=== PATIENT | male | born 1935 | race Caucasian/White ===

== ENCOUNTER 2023-05-20 13:12 | Inpatient (IN) | payer MEDICARE ==
[~2023-05-20] VITALS: Ht 172.7 cm; Wt 77.9 kg
--- NOTE | 2023-05-20 13:25 | ED Lower Extremity ---
General Chief Complaint: Trauma-Non Activation Stated Complaint: FALL | LT HIP PAIN Source: patient Exam Limitations: no limitations History of Present Illness Date Seen by Provider: May 20, 2023 Time Seen by Provider: 13:23 Initial Comments Patient is a 88-year-old male who presents ED with left elbow and left hip pain. Patient fell 1 hour ago. 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 Patient states when he stood up lost his balance fell directly on his left hip. Denies hitting his head or loss of conscious. Does have abrasion to the left elbow without any specific pain. Was not able to stand or bear weight. EMS was contacted. Slight rotation of the left hip. Pain with movement. Patient was given 100 mcg of fentanyl and route. Rates pain 5 out of 10. Denies of any chest pain, shortness of breath, neck pain, back pain vomiting, diarrhea, dizziness, lightheadedness. No history of previous hip fracture. Patient is not on anticoagulants. Allergies and Home Medications Allergies Coded Allergies: Acetaminophen (Unverified Allergy, Mild, 02/08/08) Patient Home Medication List Home Medication List Reviewed: Yes Review of Systems Constitutional: No chills, No diaphoresis EENTM: No ear pain, No blurred vision, No double vision, No mouth pain, No mouth swelling, No throat pain, No throat swelling Respiratory: No cough, No dyspnea on exertion Cardiovascular: No chest pain Gastrointestinal: No abdominal pain, No diarrhea, No vomiting Genitourinary: No decreased output, No discharge Musculoskeletal: No back pain; joint pain, joint swelling, muscle pain, muscle stiffness Skin: change in color All Other Systems Reviewed Negative Unless Noted: Yes Past Eacsgli-Leyhjf-Pvpbfd Hx Past Medical History Reproductive Disorders: No Physical Exam Vital Signs Vital Signs - First Documented 05/20/23 13:13 Temp 36.5 Pulse 68 Resp 18 B/P (MAP) 158/63 (94) Pulse Ox 95 O2 Delivery Room Air Capillary Refill : Height, Weight, BMI Height: '" Weight: lbs. oz. kg; BMI Method: General Appearance: WD/WN, no apparent distress HEENT: PERRL/EOMI, normal ENT inspection, TMs normal, pharynx normal Neck: non-tender, full range of motion, supple Cardiovascular: regular rate, rhythm, no edema, no gallop, no JVD Respiratory: chest non-tender, lungs clear, normal breath sounds, no respiratory distress, no accessory muscle use Gastrointestinal: normal bowel sounds, non tender, no organomegaly Back: normal inspection, no CVA tenderness Hips: left hip limited range of motion, left hip pain, left hip soft tissue tenderness Knees: bilateral knee non-tender, bilateral knee normal inspection, bilateral knee normal range of motion Ankles: bilateral ankle non-tender, bilateral ankle normal inspection, bilateral ankle normal range of motion, bilateral ankle no evidence of injury Feet: bilateral foot non-tender, bilateral foot normal inspection, bilateral foot normal range of motion, bilateral foot no evidence of injury 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 Normal active range of motion left elbow. Neurovascular intact.) Progress/Results/Core Measures Results/Orders Lab Results Laboratory Tests Test 05/20/23 13:20 05/20/23 14:19 Range/Units White Blood Count 10.3 4.3-11.0 10^3/uL Red Blood Count 4.42 4.30-5.52 10^6/uL Hemoglobin 14.4 13.3-17.7 g/dL Hematocrit 43 40-54 % Mean Corpuscular Volume 97 80-99 fL Mean Corpuscular Hemoglobin 33 25-34 pg Mean Corpuscular Hemoglobin Concent 34 32-36 g/dL Red Cell Distribution Width 13.1 10.0-14.5 % Platelet Count 165 130-400 10^3/uL Mean Platelet Volume 9.4 9.0-12.2 fL Immature Granulocyte % (Auto) 0 % Neutrophils (%) (Auto) 81 H 42-75 % Lymphocytes (%) (Auto) 10 L 12-44 % Monocytes (%) (Auto) 6 0-12 % Eosinophils (%) (Auto) 3 0-10 % Basophils (%) (Auto) 0 0-10 % Neutrophils # (Auto) 8.3 H 1.8-7.8 10^3/uL Lymphocytes # (Auto) 1.0 1.0-4.0 10^3/uL Monocytes # (Auto) 0.7 0.0-1.0 10^3/uL Eosinophils # (Auto) 0.3 0.0-0.3 10^3/uL Basophils # (Auto) 0.0 0.0-0.1 10^3/uL Immature Granulocyte # (Auto) 0.0 0.0-0.1 10^3/uL Percent Immature Platelet Fraction 2.4 0.0-7.6 % Sodium Level 138 135-145 MMOL/L Potassium Level 4.1 3.6-5.0 MMOL/L Chloride Level 108 H 98-107 MMOL/L Carbon Dioxide Level 24 21-32 MMOL/L Anion Gap 6 5-14 MMOL/L Blood Urea Nitrogen 11 7-18 MG/DL Creatinine 1.23 0.60-1.30 MG/DL Estimat Glomerular Filtration Rate 57 BUN/Creatinine Ratio 9 Glucose Level 106 H 70-105 MG/DL Calcium Level 9.2 8.5-10.1 MG/DL Corrected Calcium 9.4 8.5-10.1 MG/DL Total Bilirubin 0.8 0.1-1.0 MG/DL Aspartate Amino Transf (AST/SGOT) 27 5-34 U/L Alanine Aminotransferase (ALT/SGPT) 23 0-55 U/L Alkaline Phosphatase 77 40-136 U/L Total Protein 6.9 6.4-8.2 GM/DL Albumin 3.8 3.2-4.5 GM/DL Prothrombin Time 15.0 H 12.2-14.7 SEC INR Comment 1.1 0.8-1.4 Activated Partial Thromboplast Time 28 24-35 SEC My Orders Orders - MARTIR BARRIOS PA Pelvis With Left Hip 2-3 Views (05/20/23 13:21) Elbow, Left, 3 Views (05/20/23 13:21) Chest 1 View, Ap/Pa Only (05/20/23 13:43) Cbc And Automated Diff (05/20/23 13:43) Comprehensive Metabolic Panel (05/20/23 13:43) Partial Thromboplastin Time (05/20/23 13:43) Protime With Inr (05/20/23 13:43) Ekg Tracing (05/20/23 13:43) Fentanyl Injection (Fentanyl Injection (05/20/23 14:33) Ed Admission (Communication) (05/20/23 14:33) Catheter(Urinary) Insert & Ass ,15 (05/20/23 14:39) Lidocaine 2% (Urojet) (Lidocaine 2% (Uro (05/20/23 14:45) Medications Given in ED Current Medications Medications Dose Ordered Sig/Phoebe Route Start Time Stop Time Status Last Admin Dose Admin Lidocaine HCl 10 ml ONCE ONCE TOP 05/20/23 14:45 05/20/23 14:46 DC 05/20/23 14:43 10 ML Vital Signs/I&O 05/20/23 13:13 Temp 36.5 Pulse 68 Resp 18 B/P (MAP) 158/63 (94) Pulse Ox 95 O2 Delivery Room Air Comment Atrial fibrillation, 59 bpm, QRS duration 119 MS, QTc 481 MS. Departure Communication (PCP) Patient is a 88-year-old male with a history of AAA repair, coronary artery disease, Afib who presents ED for evaluation after fall. Differential diagnoses left hip fracture, left elbow fracture, hip sprain/strain, skin abrasion. This was a mechanical fall lost his balance hitting his left hip and left elbow. Was not able to stand or bear weight. Does not believe he has hit his head. No headache dizziness loss of consciousness, visual changes, neck or back pain. Slight external rotation of the left hip. Neurovascular intact. Did receive 100 mcg of fentanyl per EMS. Pain 5 out of 10. Does have a superficial abrasion to the left elbow. Up-to-date on his tetanus within the past 5 years. X-ray left elbow and left hip was ordered. X-ray of the left hip shows Mildly displaced base neck fracture to the left proximal femur without dislocation or acetabular injury apparent. Elbow x-ray was negative for acute fracture. Preop workup was initiated. Generalized lab work, EKG chest x-ray. Patient was discussed with Dr. Rodriguez orthopedic. At this time recommend admission to the hospitalist and tentatively will put patient on schedule for surgery tomorrow. Patient was discussed with Dr. Arzate hospitalist for [facility] who agreed to except patient. EKG shows atrial fibrillation with 59 bpm. Patient is currently on Multaq. History of atrial fibrillation. Did receive another dose of 50 mcg of fentanyl. Lab work grossly unremarkable. Chest x-ray unremarkable. Impression Primary Impression: Hip fracture Disposition: ADMITTED INPATIENT Condition: Stable Departure-Patient Inst. Referrals: NO,LOCAL PHYSICIAN (PCP/Family) Primary Care Physician MARTIR BARRIOS May 20, 2023 13:25
[2023-05-20 13:54] LABS: ALBUMIN 3.8 GM/DL (3.2-4.5); HEMOGLOBIN 14.4 g/dL (13.3-17.7); MEAN CORPUSCULAR HEMOGLOBIN 33 pg (25-34); POTASSIUM 4.1 MMOL/L (3.6-5.0)
[2023-05-20 13:55] LABS: CALCIUM 9.2 MG/DL (8.5-10.1)
[2023-05-20 13:56] LABS: BASOPHILS % (AUTO) 0 % (0-10); EOSINOPHILS # (AUTO) 0.3 10^3/uL (0.0-0.3); EOSINOPHILS % (AUTO) 3 % (0-10); HEMATOCRIT 43 % (40-54); LYMPHOCYTES % (AUTO) 10 % (12-44); MEAN CORPUSCULAR HGB CONC 34 g/dL (32-36); MEAN CORPUSCULAR VOLUME 97 fL (80-99); MEAN PLATELET VOLUME 9.4 fL (9.0-12.2); MONOCYTES # (AUTO) 0.7 10^3/uL (0.0-1.0); MONOCYTES % (AUTO) 6 % (0-12); NEUTROPHILS # (AUTO) 8.3 10^3/uL (1.8-7.8); NEUTROPHILS % (AUTO) 81 % (42-75); PLATELET COUNT 165 10^3/uL (130-400); TOTAL PROTEIN 6.9 GM/DL (6.4-8.2); WHITE BLOOD COUNT 10.3 10^3/uL (4.3-11.0)
[2023-05-20 13:58] LABS: BILIRUBIN,TOTAL 0.8 MG/DL (0.1-1.0)
[2023-05-20 14:00] LABS: CREATININE SERUM 1.23 MG/DL (0.60-1.30)
--- NOTE | 2023-05-20 14:10 | Diagnostic Imaging Report ---
Indication: Pain. Findings: 2 view left elbow performed. No displaced fat pad fracture, dislocation or acute articular irregularity. Impression: No acute-appearing abnormality. Dictated by: Dictated on workstation # [id number]
--- NOTE | 2023-05-20 14:10 | Diagnostic Imaging Report ---
INDICATION: A fall with fracture. Preop evaluation. FINDINGS: The lungs are clear. Sternal wires midline. No acute abnormality. No failure pattern. IMPRESSION: Clear chest. Dictated by: Dictated on workstation # [id number]
--- NOTE | 2023-05-20 14:11 | Diagnostic Imaging Report ---
INDICATION: Fall, with pain. AP pelvis and two-view left hip performed. FINDINGS: Exam confirms mildly displaced base neck left femoral fracture without dislocation of the head, and acetabulum appeared intact. Post-interventional changes noted. IMPRESSION: Mildly displaced base neck fracture to the left proximal femur without dislocation or acetabular injury apparent. Dictated by: Dictated on workstation # [id number]
[2023-05-20] MEDS ORDERED: fentaNYL INJECTION 100 MCG/2 ML VIAL IVP STA (14:33)
[2023-05-20] MEDS ORDERED: LIDOCAINE UROJET 2% GEL 10 ML PKG TOP ONE (14:45)
[2023-05-20 14:47] LABS: INR 1.1 (0.8-1.4)
--- NOTE | 2023-05-20 15:23 | History & Physical ---
HPI History of Present Illness: 88 yo male came to ER after falling earlier this afternoon. 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 He denies dizziness or loss of consciousness. He has pain in left leg that is okay if he doesn't move it at all and with the pain medication. When EMS picked him up he could hardly move his leg at all. He scraped his left elbow as well. He does not believe he his his head. Denies numbness or tingling in leg. Source: patient Exam Limitations: no limitations Date seen by provider: May 20, 2023 Time Seen by Provider: 15:19 Attending Physician PCP Admitting Physician: Attending Physician: Consult Dr. Rodriguez Date of Admission Home Medications Home Medications Reviewed patient Home Medication Reconciliation performed by pharmacy medication reconciliations ruling technician and/or nursing. Patients Allergies have been reviewed. Allergies Coded Allergies: acetaminophen (Unverified Allergy, Mild, 02/08/08) IYT-Yppfeq-Hqyhcb Hx Patient Social History Smoking Status: Former Smoker (quit smoking in 2009, smoked at least 1 ppd for 50+ years) Alcohol Use?: No Past Medical History PMHx: CAD s/p bypass Atrial fibrillation Hyperlipidemia Hypertension Peripheral vascular disease PSurgHx: Triple bypass 2010 Aortic anuerysm repair 2007 Renal artery stenting on left Cataract surgery Right inguinal hernia repair x 2 Family Medical History Significant Family History: Cancer (father pancreatic), CVA (mother stroke), Diabetes (sister) Review of Systems ([facility]) Constitutional: No fever EENTM: No blurred vision, No double vision, No nose congestion, No throat pain Respiratory: No cough, No short of breath Cardiovascular: No chest pain, No palpitations Gastrointestinal: No abdominal pain; constipation (on and off), diarrhea (on and off); No nausea, No vomiting Genitourinary: No dysuria Musculoskeletal: see HPI Skin: No rash Psychiatric/Neurological: Denies Headache, Denies Tingling Reviewed Test Results Reviewed Test Results Lab Laboratory Tests Test 05/20/23 13:20 05/20/23 14:19 Range/Units White Blood Count 10.3 4.3-11.0 10^3/uL Red Blood Count 4.42 4.30-5.52 10^6/uL Hemoglobin 14.4 13.3-17.7 g/dL Hematocrit 43 40-54 % Mean Corpuscular Volume 97 80-99 fL Mean Corpuscular Hemoglobin 33 25-34 pg Mean Corpuscular Hemoglobin Concent 34 32-36 g/dL Red Cell Distribution Width 13.1 10.0-14.5 % Platelet Count 165 130-400 10^3/uL Mean Platelet Volume 9.4 9.0-12.2 fL Immature Granulocyte % (Auto) 0 % Neutrophils (%) (Auto) 81 H 42-75 % Lymphocytes (%) (Auto) 10 L 12-44 % Monocytes (%) (Auto) 6 0-12 % Eosinophils (%) (Auto) 3 0-10 % Basophils (%) (Auto) 0 0-10 % Neutrophils # (Auto) 8.3 H 1.8-7.8 10^3/uL Lymphocytes # (Auto) 1.0 1.0-4.0 10^3/uL Monocytes # (Auto) 0.7 0.0-1.0 10^3/uL Eosinophils # (Auto) 0.3 0.0-0.3 10^3/uL Basophils # (Auto) 0.0 0.0-0.1 10^3/uL Immature Granulocyte # (Auto) 0.0 0.0-0.1 10^3/uL Percent Immature Platelet Fraction 2.4 0.0-7.6 % Sodium Level 138 135-145 MMOL/L Potassium Level 4.1 3.6-5.0 MMOL/L Chloride Level 108 H 98-107 MMOL/L Carbon Dioxide Level 24 21-32 MMOL/L Anion Gap 6 5-14 MMOL/L Blood Urea Nitrogen 11 7-18 MG/DL Creatinine 1.23 0.60-1.30 MG/DL Estimat Glomerular Filtration Rate 57 BUN/Creatinine Ratio 9 Glucose Level 106 H 70-105 MG/DL Calcium Level 9.2 8.5-10.1 MG/DL Corrected Calcium 9.4 8.5-10.1 MG/DL Total Bilirubin 0.8 0.1-1.0 MG/DL Aspartate Amino Transf (AST/SGOT) 27 5-34 U/L Alanine Aminotransferase (ALT/SGPT) 23 0-55 U/L Alkaline Phosphatase 77 40-136 U/L Total Protein 6.9 6.4-8.2 GM/DL Albumin 3.8 3.2-4.5 GM/DL Prothrombin Time 15.0 H 12.2-14.7 SEC INR Comment 1.1 0.8-1.4 Activated Partial Thromboplast Time 28 24-35 SEC Radiology Left elbow xray unremarkable CXR unremarkable Pelvis xray: IMPRESSION: Mildly displaced base neck fracture to the left proximal femur without dislocation or acetabular injury apparent. Physical Exam-([facility]) Physical Exam Vital Signs VS - Last 72 Hours, by Label 05/20/23 05/20/23 13:13 15:44 Temp 36.5 Pulse 68 63 Resp 18 18 B/P (MAP) 158/63 (94) 131/61 Pulse Ox 95 95 O2 Delivery Room Air Room Air Capillary Refill : Less Than 3 Seconds General Appearance: WD/WN, no apparent distress Respiratory: lungs clear, normal breath sounds Cardiovascular: regular rate, rhythm, no murmur Peripheral Pulses: 2+ Dorsalis Pedis (R), 2+ Left Dors-Pedis (L) Gastrointestinal: normal bowel sounds, non tender, soft, other (small umbilical hernia noted) Extremities: no pedal edema, normal capillary refill, other Skin: warm/dry Assessment/Plan Assessment/Plan Admission Status: Inpatient Order (span 2 midnights) Reason for Inpatient Admission: Hip fracture with multiple comorbidities (1) Hip fracture, left Status: Acute Assessment & Plan: Orthopedic surgery consulted. Fentanyl prn pain. Qualifiers: Qualified Codes: S72.002A - Fracture of unspecified part of neck of left femur, initial encounter for closed fracture (2) Coronary artery disease Status: Chronic Assessment & Plan: EKG with atrial fib (known) otherwise unremarkable. Asymptomatic and medically managed appropriately with no issues reported since bypass more than 10 years ago, follows with Cardiology regularly. Qualifiers: Qualified Codes: I25.810 - Atherosclerosis of coronary artery bypass graft(s) without angina pectoris (3) Aortic aneurysm Status: Chronic Assessment & Plan: History of stenting in past, reports yearly imaging shows stability/near resolution (4) Peripheral vascular disease Status: Chronic Assessment & Plan: Maintained on aspirin (5) Hypertension Status: Chronic Assessment & Plan: Maintained on ramipril (6) Hyperlipidemia Status: Chronic Assessment & Plan: Maintained on simvastatin (7) Atrial fibrillation Status: Chronic Assessment & Plan: Maintained on Multaq, states he was on coumadin years ago and has been off full anticoagulation for some time after joint decision making with his primary. TASHA,ZEN N MD May 20, 2023 15:23
[2023-05-20 16:00] VITALS: BP 163/70
--- NOTE | 2023-05-20 16:08 | Diagnostic Imaging Report ---
PROCEDURE: CT pelvis without contrast. TECHNIQUE: Multiple contiguous axial images were obtained through the pelvis without the use of intravenous contrast. Sagittal and coronal reformations were performed. Auto Exposure Controls were utilized during the CT exam to meet ALARA standards for radiation dose reduction. INDICATION: Left hip fracture. COMPARISON: 05/20/2023 radiographs. FINDINGS: Bone density appears low. There is an oblique fracture of the basicervical left femoral neck, with superior mild anterior displacement, impaction, and mild external rotation. The femoral heads are well seated in the acetabula bilaterally. There is mild degenerative change in the hip joints. There is a small left hip joint effusion. There is transitional anatomy at the lumbosacral junction. There are severe degenerative changes in the lower lumbar spine with L4 pars defects and grade 1 spondylolisthesis at L3-L4 and L4-L5. There is an aortobiiliac stent in an aortic aneurysm. Coils from prior abdominal hernia repair are noted in the right anterior abdomen. There is a fat-containing right inguinal hernia. A Whitlock catheter is in the bladder. No free fluid is seen in the pelvis. IMPRESSION: 1. Mildly displaced and impacted fracture of the left femoral neck. 2. Transitional anatomy at the lumbosacral junction with advanced degenerative change in the lower lumbar spine. Dictated by: Dictated on workstation # [id number]
[2023-05-20] MEDS: fentaNYL INJECTION 100 MCG/2 ML VIAL IVP PRN ×2 (17:13→20:42)
[2023-05-20] MEDS ORDERED: DRON400T6 PO (17:15)
[2023-05-20] MEDS ORDERED: RAMI10CA69 PO (17:15)
[2023-05-20] MEDS ORDERED: ASPI-999 PO (17:15)
[2023-05-20] MEDS ORDERED: SIMV40TA25 PO (17:15)
[2023-05-20 20:00] VITALS: BP 139/61
[2023-05-20] MEDS: DRONEDARONE 400 MG TABLET PO SCH ×2 (20:16→20:41)
[2023-05-20] MEDS ORDERED: DICYCLOMINE 10 MG CAPSULE PO PRN (22:00)
[2023-05-20 23:17] VITALS: BP 124/60
[2023-05-21] VITALS (13 sets, daily range): BP systolic 105–165; BP diastolic 55–81
[2023-05-21] MEDS: fentaNYL INJECTION 100 MCG/2 ML VIAL IVP PRN ×2 (03:20→09:04)
[2023-05-21 06:13] LABS: HEMATOCRIT 39 % (40-54); HEMOGLOBIN 13.1 g/dL (13.3-17.7); MEAN CORPUSCULAR HEMOGLOBIN 32 pg (25-34); MEAN CORPUSCULAR HGB CONC 34 g/dL (32-36); MEAN CORPUSCULAR VOLUME 96 fL (80-99); MEAN PLATELET VOLUME 9.8 fL (9.0-12.2); PLATELET COUNT 140 10^3/uL (130-400); WHITE BLOOD COUNT 14.8 10^3/uL (4.3-11.0)
[2023-05-21 06:16] LABS: POTASSIUM 4.2 MMOL/L (3.6-5.0)
[2023-05-21 06:17] LABS: CALCIUM 8.8 MG/DL (8.5-10.1)
[2023-05-21 06:21] LABS: CREATININE SERUM 1.24 MG/DL (0.60-1.30)
--- NOTE | 2023-05-21 08:26 | Consultation - Ortho ---
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, landed on left side, unable to bear weight, seen in emergency room and diagnosed with a left femoral neck fracture, I was asked to manage the fracture Medical, Surgical History CAD, A fib, Hyperlipidemia, HTN, PVD Coronary bypass, AAA repair 2007, Renal artery stenting on left, cataract extraction, right inguinal hernia repair x 2 Social History nonsmoker Family History Noncontributory Review of Systems - Allergies: Coded Allergies: acetaminophen (Unverified Allergy, Mild, 02/08/08) Home Meds Reported Medications Aspirin (Aspirin) 81 Mg Tab.chew, 81 MG PO DAILY, TAB 05/20/23 Ramipril (Ramipril) 10 Mg Capsule, 10 MG PO DAILY 05/20/23 Dronedarone HCl (Multaq) 400 Mg Tablet, 400 MG PO BID 05/20/23 Simvastatin (Simvastatin) 40 Mg Tablet, 40 MG PO DAILY 05/20/23 Objective Exam Left Leg: Ecchymosis over lateral portion of hip, no abrasion, skin intact, held in slight external rotation, +DF of ankle, sensation intact to light touch, cap refill normal Vital Signs Vital Signs Date Time Temp Pulse Resp B/P (MAP) Pulse Ox O2 Delivery O2 Flow Rate FiO2 05/21/23 07:08 37.0 60 18 135/63 (87) 90 Room Air 05/21/23 03:16 37.5 60 15 126/60 (82) 93 Room Air 05/20/23 23:17 36.8 70 15 124/60 (81) 92 Room Air 05/20/23 20:20 Room Air 05/20/23 20:00 37.3 78 15 139/61 (87) 93 Room Air 05/20/23 18:35 Room Air 05/20/23 16:00 37.0 73 14 163/70 (101) 96 Room Air 05/20/23 15:44 63 18 131/61 95 Room Air 05/20/23 13:13 36.5 68 18 158/63 (94) 95 Room Air I & O 05/21/23 07:00 Intake Total 400 ml Output Total 500 ml Balance -100 ml Lab Results Laboratory Tests 05/20/23 13:20: White Blood Count 10.3, Red Blood Count 4.42, Hemoglobin 14.4, Hematocrit 43, Mean Corpuscular Volume 97, Mean Corpuscular Hemoglobin 33, Mean Corpuscular Hemoglobin Concent 34, Red Cell Distribution Width 13.1, Platelet Count 165, Mean Platelet Volume 9.4, Immature Granulocyte % (Auto) 0, Neutrophils (%) (Auto) 81H, Lymphocytes (%) (Auto) 10L, Monocytes (%) (Auto) 6, Eosinophils (%) (Auto) 3, Basophils (%) (Auto) 0, Neutrophils # (Auto) 8.3H, Lymphocytes # (Auto) 1.0, Monocytes # (Auto) 0.7, Eosinophils # (Auto) 0.3, Basophils # (Auto) 0.0, Immature Granulocyte # (Auto) 0.0, Percent Immature Platelet Fraction 2.4, Sodium Level 138, Potassium Level 4.1, Chloride Level 108H, Carbon Dioxide Level 24, Anion Gap 6, Blood Urea Nitrogen 11, Creatinine 1.23, Estimat Glomerular Lawrence tration Rate 57, BUN/Creatinine Ratio 9, Glucose Level 106H, Calcium Level 9.2, Corrected Calcium 9.4, Total Bilirubin 0.8, Aspartate Amino Transf (AST/SGOT) 27, Alanine Aminotransferase (ALT/SGPT) 23, Alkaline Phosphatase 77, Total Pr otein 6.9, Albumin 3.8 05/20/23 14:19: Prothrombin Time 15.0H, INR Comment 1.1, Activated Partial Thromboplast Time 28 05/21/23 05:39: White Blood Count 14.8H, Red Blood Count 4.06L, Hemoglobin 13.1L, Hematocrit 39L , Mean Corpuscular Volume 96, Mean Corpuscular Hemoglobin 32, Mean Corpuscular Hemoglobin Concent 34, Red Cell Distribution Width 13.0, Platelet Count 140, Mean Platelet Volume 9.8, Sodium Level 138, Potassium Level 4.2, Chloride Level 109H, Carbon Dioxide Level 22, Anion Gap 7, Blood Urea Nitrogen 14, Creatinine 1.24, Estimat Glomerular Filtration Rate 57, BUN/Creatinine Ratio 11, Glucose Level 123H, Calcium Level 8.8 Imaging Pelvis and 2 views of left hip as well as CT of pelvis dated 05/20/23 were reviewed and demonstrated a displaced midcervical femoral neck fracture of the left hip Assessment and Plan Assessment Displaced Left Femoral Neck Fracture Problem List Displaced Left Femoral Neck Fracture Plan Reviewed exam and imaging. Discussed findings. I have recommended proceeding with prosthetic replacement of the left femoral neck fracture. Nature of the procedure and the postoperative course were discussed. Risks and benefits were discussed. Consent to be obtained. Tentatively scheduled for early this afternoon. Will proceed as long as medically optimized. Final Diagonsis Displaced Left Femoral Neck Fracture Level of the visit: Level 3 NARESH SANCHEZ MD May 21, 2023 08:26
--- NOTE | 2023-05-21 08:37 | Progress Note ---
VERNON MARRUFO 05/21/23 0837: Subjective Subjective/Events-last exam Patient spoke with ortho thinks they are gonna need a partial hip replacement. Ortho wanted to get cardiology to stop by to clear him for surgery. prior to hip fracture patient was able to walk a few blocks without SOA and can climb a flight of stairs without chest pain. Patiet report pain that is worse today. She last received fentinyl at 7:00 but it seems to wear off quickly. patient cant move or change positions due to pain. pain is a 5/10. gets down to a 3 after pain then goes to 7 before pain meds. patient also reports having bladder spasms. been going on ever since the cath was placed. patient has no questions or concerns. Review of Systems General: No Chills; Night Sweats (room was warm ) HEENT: No Head Aches, No Visual Changes, No Eye Pain, No Ear Pain, No Dysphasia Pulmonary: No Dyspnea; Cough (still getting over a cold ) Cardiovascular: No: Chest Pain, Palpitations Gastrointestinal: Nausea, Vomiting (vomited 2x thinks it was due to bladder spasm medication ); No: Abdominal Pain, Diarrhea, Constipation Genitourinary: No Dysuria Musculoskeletal: leg pain (from hip to toes on left leg ) Neurological: Weakness (in left leg due to pain) Objective Exam Last Set of Vital Signs Vital Signs Date Time Temp Pulse Resp B/P (MAP) Pulse Ox O2 Delivery O2 Flow Rate FiO2 05/21/23 07:08 37.0 60 18 135/63 (87) 90 Room Air Capillary Refill : Less Than 3 Seconds I&O Intake and Output 05/20/23 23:59 Intake Total 400 ml Output Total 350 ml Balance 50 ml Intake Oral 400 ml Output Urine Total 350 ml Daily Weight Change No General: Alert, Oriented X3, Mild Distress HEENT: EOMI Lungs: Clear to Auscultation, Normal Air Movement Heart: Other (ireg ireg ) Abdomen: Normal Bowel Sounds, Soft, No Tenderness Extremities: No Edema, Normal Pulses Neuro: Sensation Intact Results/Procedures Lab Laboratory Tests 05/20/23 13:20: White Blood Count 10.3, Red Blood Count 4.42, Hemoglobin 14.4, Hematocrit 43, Mean Corpuscular Volume 97, Mean Corpuscular Hemoglobin 33, Mean Corpuscular Hemoglobin Concent 34, Red Cell Distribution Width 13.1, Platelet Count 165, Mean Platelet Volume 9.4, Immature Granulocyte % (Auto) 0, Neutrophils (%) (Auto) 81H, Lymphocytes (%) (Auto) 10L, Monocytes (%) (Auto) 6, Eosinophils (%) (Auto) 3, Basophils (%) (Auto) 0, Neutrophils # (Auto) 8.3H, Lymphocytes # (Auto) 1.0, Monocytes # (Auto) 0.7, Eosinophils # (Auto) 0.3, Basophils # (Auto) 0.0, Immature Granulocyte # (Auto) 0.0, Percent Immature Platelet Fraction 2.4, Sodium Level 138, Potassium Level 4.1, Chloride Level 108H, Carbon Dioxide Level 24, Anion Gap 6, Blood Urea Nitrogen 11, Creatinine 1.23, Estimat Glomerular Filtration Rate 57, BUN/Creatinine Ratio 9, Glucose Level 106H, Calcium Level 9.2, Corrected Calcium 9.4, Total Bilirubin 0.8, Aspartate Amino Transf (AST/SGOT) 27, Alanine Aminotransferase (ALT/SGPT) 23, Alkaline Phosphatase 77, Total Protein 6.9, Albumin 3.8 05/20/23 14:19: Prothrombin Time 15.0H, INR Comment 1.1, Activated Partial Thromboplast Time 28 05/21/23 05:39: White Blood Count 14.8H, Red Blood Count 4.06L, Hemoglobin 13.1L, Hematocrit 39L , Mean Corpuscular Volume 96, Mean Corpuscular Hemoglobin 32, Mean Corpuscular Hemoglobin Concent 34, Red Cell Distribution Width 13.0, Platelet Count 140, Mean Platelet Volume 9.8, Sodium Level 138, Potassium Level 4.2, Chloride Level 109H, Carbon Dioxide Level 22, Anion Gap 7, Blood Urea Nitrogen 14, Creatinine 1.24, Estimat Glomerular Filtration Rate 57, BUN/Creatinine Ratio 11, Glucose Level 123H, Calcium Level 8.8 Radiology Left elbow xray unremarkable CXR unremarkable Pelvis xray: IMPRESSION: Mildly displaced base neck fracture to the left proximal femur without dislocation or acetabular injury apparent. Assessment/Plan Assessment/Plan (1) Hip fracture, left Status: Acute Assessment & Plan: Fentanyl prn pain. surgery planned for today around noon. Qualifiers: Qualified Codes: S72.002A - Fracture of unspecified part of neck of left femur, initial encounter for closed fracture (2) Coronary artery disease Status: Chronic Assessment & Plan: EKG with atrial fib (known) otherwise unremarkable. Asymptomatic and medically managed appropriately with no issues reported since bypass more than 10 years ago, follows with Cardiology regularly. Qualifiers: Qualified Codes: I25.810 - Atherosclerosis of coronary artery bypass graft(s) without angina pectoris (3) Bladder spasms Status: Acute Assessment & Plan: Patient reported bladder spasms since placement of catheter. Start dicyclomine PRN (4) Aortic aneurysm Status: Chronic Assessment & Plan: History of stenting in past, reports yearly imaging shows stability/near resolution (5) Peripheral vascular disease Status: Chronic Assessment & Plan: Maintained on aspirin (6) Hypertension Status: Chronic Assessment & Plan: Maintained on ramipril (7) Hyperlipidemia Status: Chronic Assessment & Plan: Maintained on simvastatin (8) Atrial fibrillation Status: Chronic Assessment & Plan: Maintained on Multaq, states he was on coumadin years ago and has been off full anticoagulation for some time after joint decision making with his primary. ZEN CORDOVA MD 05/21/232037: Supervisory-Addendum Brief Verification & Attestation Participated in pt care: history, MDM, physical Personally performed: exam, history, MDM, supervision of care Care discussed with: Medical Student Procedures: n/a I personally performed or re-performed the history, physical exam and treatment for the E/M. I discussed the case with the Medical Student, and concur with the Medical Student documentation of history, physical exam and treatment plan unless otherwise noted. VERNON MARRUFO May 21, 2023 08:37 ZEN CORDOVA MD May 21, 2023 20:38
[2023-05-21] MEDS ORDERED: RAMIPRIL 2.5 MG CAPSULE PO SCH ×2 (09:00→16:00)
[2023-05-21] MEDS ORDERED: NON-FORMULARY MEDICATION 1 EA EA (Ramipril 10 MG) PO SCH (09:00)
[2023-05-21] MEDS ORDERED: NON-FORMULARY MEDICATION 1 EA EA (Simvastatin 40 MG) PO SCH (09:00)
[2023-05-21] MEDS: ASPIRIN 81 MG CHEWABLE TABLET PO SCH (09:03)
[2023-05-21] MEDS: DRONEDARONE 400 MG TABLET PO SCH ×2 (09:04→20:33)
[2023-05-21] MEDS ORDERED: SODI45SP9 NS (09:18)
--- NOTE | 2023-05-21 11:27 | Consultation-Cardiology ---
HPI-Cardiology Cardiology Consultation: Date of Consultation 05/21/23 Time Seen by a Provider: 11:00 Date of Admission 03-12-22 Attending Physician Earlene,Local Physician Admitting Physician Admitting Physician: Zen Cordova MD Attending Physician: Zen Cordova MD Consulting Physician Michelle Ortega MD HPI: Chief Complaint: Chronic a-fib Surgical clearance Mr. Edwards is an 88 yr old male who has been admitted to [facility] from the ED d/t left hip fracture d/t a mechanical fall. 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 He denies any dizziness, chest pain, SOB, palpitations, syncope or near syncope. No c/o LE swelling. He reports his primary transit mechanic was Dr. Owens with [facility], but d/t him leaving he is now establishing care with Dr. Carley oh. He reports he was seen by a nurse practitioner at the [facility] in [place] recently. He has been compliant with his medications. Review of Systems-Cardiology Review of Systems Constitutional: No chills, No fever, No malaise Eyes: No vision change Ears/Nose/Throat: No epistaxis, No recent hearing loss Respiratory: As described under HPI Cardiovascular: As described under HPI Gastrointestinal: No constipation, No diarrhea, No nausea, No vomiting Genitourinary: No dysuria, No hematuria Musculoskeletal: other (left hip fracture) Skin: other (abrasions to his left elbow/arm); No rash on exposed areas, No ulcerations on exposed areas Psychiatric/Neurological: No anxiety, No depression, No seizure, No focal weakness, No syncope All Other Systems Reviewed Negative Unless Noted: Yes XKM-Ndhddl-Lmcret Hx Patient Social History Smoking Status: Former Smoker Alcohol Use?: No Pt feels they are or have been: No Immunizations Up To Date Date of Influenza Vaccine: Mar 19, 2023 Past Medical History PMH As described under Assessment. Family Medical History Family Medical History: No reported family h/o CAD Allergies and Home Medications Allergies Coded Allergies: acetaminophen (Unverified Allergy, Mild, 02/08/08) Patient Home Medication List Aspirin (Aspirin) 81 Mg Tab.chew, 81 MG PO DAILY, (Reported) Entered as Reported by: ZEN CORDOVA on [id number] Last Action: Reviewed Dronedarone HCl (Multaq) 400 Mg Tablet, 400 MG PO BID, (Reported) Entered as Reported by: ZEN CORDOVA on 05/20/231714 Last Action: Reviewed Ramipril (Ramipril) 10 Mg Capsule, 10 MG PO 1600, (Reported) Entered as Reported by: ZEN CORDOVA on 05/20/231714 Last Action: Reviewed Simvastatin (Simvastatin) 40 Mg Tablet, 40 MG PO HS, (Reported) Entered as Reported by: ZEN CORDOVA on 05/20/231714 Last Action: Reviewed Sodium Chloride (Saline Nose [place]) 0.65 % [place], 1 SPRAY NS DAILY PRN for DRY NOSE, (Reported) Entered as Reported by: QI FLORES on 05/21/23917 Last Action: Reviewed Physical Exam-Cardiology Physical Exam Vital Signs/I&O 05/21/23 05/22/23 05/22/23 23:30 04:26 08:02 Temp 37.3 37.4 37.4 Pulse 72 102 71 Resp 18 18 17 B/P (MAP) 105/61 (76) 114/61 (78) 108/64 (79) Pulse Ox 95 91 98 O2 Delivery Room Air Room Air Room Air 05/21/23 23:59 Intake Total 2225 ml Output Total 480 ml Balance 1745 ml Capillary Refill : Less Than 3 Seconds Constitutional: AAO x 3, well-developed, well-nourished HEENT: PERRL, hearing is well preserved, oral hygience is good Neck: No carotid bruit; carotid pulses are 2 + bilaterally Respiratory: No accessory muscle use, No respiratory distress; chest expansion is symmetric, chest is bilaterally symmetric, lungs clear to auscultation Cardiovascular: irregularly irregular; No JVD; S1 and S2 Gastrointestinal: No tender; soft, round; No guarding; audible bowel sounds Extremities: no lower extremity edema bilateral Neurologic/Psychiatric: other (moves extremities, did not manipulate left leg d/t hip fracture, but able to move toes) Skin: No rash on exposed areas; other (multiple abrasions to left elbow/arm with dressing in place) Data Review Labs Laboratory Tests 05/22/23 05:30: White Blood Count 18.8H, Red Blood Count 3.15L, Hemoglobin 10.1#L, Hematocrit 30L, Mean Corpuscular Volume 96, Mean Corpuscular Hemoglobin 32, Mean Corpuscular Hemoglobin Concent 33, Red Cell Distribution Width 13.2, Platelet Count 138, Mean Platelet Volume 10.2, Immature Granulocyte % (Auto) 1, Neutrophils (%) (Auto) 92H, Lymphocytes (%) (Auto) 2L, Monocytes (%) (Auto) 5, Eosinophils (%) (Auto) 0, Basophils (%) (Auto) 0, Neutrophils # (Auto) 17.3H, Lymphocytes # (Auto) 0.5L, Monocytes # (Auto) 0.9, Eosinophils # (Auto) 0.0, Basophils # (Auto) 0.0, Immature Granulocyte # (Auto) 0.1, Neutrophils % (Manual) 93, Lymphocytes % (Manual) 2, Monocytes % (Manual) 5, Platelet Estimate ADEQUATE, Percent Immature Platelet Fraction 2.9, Blood Morphology Comment ELISABETH L, Sodium Level 137, Potassium Level 4.4, Chloride Level 108H, Carbon Dioxide Level 20L, Anion Gap 9, Blood Urea Nitrogen 23H, Creatinine 1.35H, Estimat Glomerular Filtration Rate 51, BUN/Creatinine Ratio 17, Glucose Level 136H, Calcium Level 8.0L Radiology NAME: NICHOLE EDWARDS [facility] REC#: [id number] PT STATUS: ADM Marita : 1935 PHYSICIAN: MARTIR BARRIOS ADMIT DATE: 05/20/23 Signed Date of Exam:05/20/23 CHEST 1 VIEW, AP/PA ONLY INDICATION: A fall with fracture. Preop evaluation. FINDINGS: The lungs are clear. Sternal wires midline. No acute abnormality. No failure pattern. IMPRESSION: Clear chest. Dictated by: Dictated on workstation # [id number] Dict: 05/20/23 1403 Trans: 05/20/231715 [facility] [id number] Interpreted by: MICH BARRERA Electronically signed by: MICH BARRERA 05/20/231715 NAME: NICHOLE EDWARDS [facility] REC#: [id number] PT STATUS: ADM Marita : 1935 PHYSICIAN: NARESH SANCHEZ MD ADMIT DATE: 05/20/23 Signed Date of Exam:05/20/23 CT PELVIS WO PROCEDURE: CT pelvis without contrast. TECHNIQUE: Multiple contiguous axial images were obtained through the pelvis without the use of intravenous contrast. Sagittal and coronal reformations were performed. Auto Exposure Controls were utilized during the CT exam to meet ALARA standards for radiation dose reduction. INDICATION: Left hip fracture. COMPARISON: 05/20/2023 radiographs. FINDINGS: Bone density appears low. There is an oblique fracture of the basicervical left femoral neck, with superior mild anterior displacement, impaction, and mild external rotation. The femoral heads are well seated in the acetabula bilaterally. There is mild degenerative change in the hip joints. There is a small left hip joint effusion. There is transitional anatomy at the lumbosacral junction. There are severe degenerative changes in the lower lumbar spine with L4 pars defects and grade 1 spondylolisthesis at L3-L4 and L4-L5. There is an aortobiiliac stent in an aortic aneurysm. Coils from prior abdominal hernia repair are noted in the right anterior abdomen. There is a fat-containing right inguinal hernia. A Whitlock catheter is in the bladder. No free fluid is seen in the pelvis. IMPRESSION: 1. Mildly displaced and impacted fracture of the left femoral neck. 2. Transitional anatomy at the lumbosacral junction with advanced degenerative change in the lower lumbar spine. Dictated by: Dictated on workstation # [id number] Dict: 05/20/23 1559 Trans: 05/20/23 1718 [id number] Interpreted by: CYNTHIA KEEN MD Electronically signed by: CYNTHIA KEEN MD 05/20/23 1718 ECG Impression ECG Initial ECG Impression: Atrial Fibrillation A/P-Cardiology Assessment/Admission Diagnosis S/P left hip fracture d/t mechanical fall CAD - H/O 3 vessel CABG [place] [address] Cheney at [facility] in [place], [place] - was following with Dr. Owens, but d/t him moving he is establishing care with Dr. Gibbons (last seen a month ago) H/O abdominal aortic stent by Dr. Todd in 2007 - followed by [facility] CV services Chronic a-fib - rate controlled - on Multaq - not on OAC which is patient preference and he is following with his primary transit mechanic HTN HLD - statin tx H/O left renal artery stent H/O renal calculi BPH - previously following with Dr. Valles Discussion and Recomendations S/P left hip fracture d/t mechanical fall requiring surgical intervention Based on his cardiac history as noted above we feel his risk for non-cardiac surgery is intermediate. We have discussed this with him and his spouse they verbalize understanding and with to proceed with surgery. We advise continuation of Multaq and ASA We have discussed rec for OAC d/t chronic a-fib for stroke prophylaxis; he verbalizes understanding of our rec but does not wish to do so Monitor lab closely. Advise Hgb be kept 9.0 or greater d/t cardiac issues as noted above We will request records from [facility] We would like to thank medical services for this consult Further recs will be based on his hospital course I have discussed plan of care and recs with Dr. Ortega in detail JOHANNE MARQUEZ May 21, 2023 11:27
[2023-05-21] MEDS ORDERED: ceFAZolin 2,000 MG VIAL IV ONE (12:00)
[2023-05-21] MEDS ORDERED: dexAMETHasone INJ 10 MG/ML 1 ML VIAL ONE (12:23)
[2023-05-21] MEDS ORDERED: proPOfol INJECTION 200 MG/20 ML VIAL IV ONE (12:23)
[2023-05-21] MEDS ORDERED: ROCURONIUM 50 MG/5 ML VIAL IV ONE (12:23)
[2023-05-21] MEDS ORDERED: ONDANSETRON INJECTION 4 MG/2 ML (SDV) ONE (12:23)
[2023-05-21] MEDS ORDERED: fentaNYL INJECTION 100 MCG/2 ML VIAL ONE (12:23)
[2023-05-21] MEDS ORDERED: LIDOCAINE PF 2% 5 ML VIAL ONE (12:23)
[2023-05-21] MEDS ORDERED: GLYCOPYRROLATE INJ 0.2 MG/ML 2 ML VIAL ONE (12:23)
[2023-05-21] MEDS ORDERED: NEOSTIGMINE 1 MG/1ML 10 ML VIAL ONE (12:23)
[2023-05-21] MEDS: LACTATED RINGERS 1,000 ML 1,000 ML IV PRN ×2 (12:27→14:06)
--- NOTE | 2023-05-21 14:38 | Operative Report - Ortho ---
Operative Report Surgeon (s)/Banking Representative (s) Surgeon NARESH SANCHEZ MD Banking Representative n/a Pre-Operative Diagnosis Displaced Left Femoral Neck Fracture Post-Operative Diagnosis same Operative Report Date of Procedure: May 21, 2023 Name of Procedure Performed: Prosthetic Replacement of Left Femoral Neck Fracture Description & Findings After obtaining informed consent and marking the patient, patient did receive IV antibiotics. Patient was taken to the operating room and anesthesia was induced. Patient was placed in the lateral decubitus position with the left side up. Left lower extremity was prepped and draped in the usual sterile fashion. Surgical timeout was taken. A posterolateral approach was utilized. External rotators and capsule were taken down in one layer. Fracture hematoma was evacuated. Femoral head was removed from the acetabulum and sized. The fracture site on the femoral neck was freshened with a saw. A 50 mm bipolar component was trialed and found to have good fit. Attention was turned to the femur, [place] cutter osteotome was used to remove the remainder of the femoral neck near the greater trochanter. Canal finder was inserted followed by the lateralizing reamer. Sequential broaching was began with a 2 and broaching to a 5. The 5 had good metaphyseal fit and fill. A neutral head and a 50 mm bipolar component were put on a 127 neck trial. This was located. Found to have grossly equal leg lengths. Stable in position of sleep and flexion with internal rotation this was accepted. Hip was atraumatically dislocated and the trial components were removed. The femoral canal and acetabulum were irrigated with pulsatile lavage. Femoral canal was prepared for cementing. Cement was mixed. Cement was placed in the femoral canal and pressurized. A size 5 Accolade C stem with a 127 neck was inserted and seated at similar level to the broach. The cement was allowed to set. A neutral head was impacted onto the Jimenez taper of the stem. A 50 mm bipolar component was placed. Hip was located and once again found to be stable. Irrisept soak was performed; further irrigation was performed. Capsular layer was closed with #2 Fiberwire. The fascial layer was closed with #2 Stratafix. The subcutaneous layer was closed with 2-0 vicryl and the skin was closed with remigio. Incision site was dressed with xeroform, 4x4s, ABD, and tape. Patient was placed in abduction pillow postoperatively and was transferred to hospital bed without incident. Tolerated the procedure well and was stable to recovery room. Anesthesia Type General Estimated Blood Loss 300 mL Specimen(s) collected/removed None NARESH SANCHEZ MD May 21, 2023 14:37
--- NOTE | 2023-05-21 14:50 | Physical Therapy Progress Note ---
Therapy Progress Note Patient currently in surgery. PT to evaluate patient tomorrow. AYLA CASON PT May 21, 2023 14:50
[2023-05-21] MEDS ORDERED: SEVOFLURANE (ULTANE) 15 ML INHAL SOLN ONE (15:00)
[2023-05-21] MEDS ORDERED: ONDANSETRON INJECTION 4 MG/2 ML (SDV) IVP PRN ×2 (15:00)
[2023-05-21] MEDS ORDERED: morphine INJ 10 MG/ML 1ML (SYR OR VIAL) IVP ONE (15:00)
[2023-05-21] MEDS ORDERED: HYDROmorphone INJECTION 2 MG/ML VIAL IV ONE (15:00)
--- NOTE | 2023-05-21 15:34 | Diagnostic Imaging Report ---
INDICATION: Postoperative left hip. TECHNIQUE: AP pelvis with single view left hip, portable 3:06 PM. CORRELATION STUDY: 05/20/2023 FINDINGS: There has been interval resection of the left femoral head and neck and placement of bipolar hip arthroplasty. Hardware in normal alignment. Overlying soft tissue gas collections and skin remigio. Remainder of the pelvis demonstrates no acute findings. Biiliac endovascular stent graft as well as likely prior right lower quadrant hernia repair. IMPRESSION: 1. Interval surgery of left hip arthroplasty. Dictated by: Dictated on workstation # [id number]
[2023-05-21] MEDS: ceFAZolin INJECTION 2,000 MG in NS (IVPB) 50 ML 50 ML IV SCH ×2 (16:19→23:24)
--- NOTE | 2023-05-21 17:11 | Consultation-Cardiology ---
HPI-Cardiology Cardiology Consultation: Date of Consultation 05/21/23 Time Seen by a Provider: 16:50 Date of Admission Attending Physician No,Local Physician Admitting Physician Admitting Physician: Zen Cordova MD Attending Physician: Zen Cordova MD Consulting Physician VINNY ELLIOTT MD, MA, FACP, FACC, [facility], CCDS Physician requesting consult: Dr Cordova, Dr Rodriguez HPI: Chief Complaint: Reason for Card consult: Chronic a-fib, CAD Mr. Montes is an 88 yr old male who has been admitted to [facility] from the ED d/t left hip fracture d/t a mechanical fall. He reports he was kneeled down down putting his the new acute care surgeon his license plate when he stood up he lost his balance and feel. He denies any dizziness, chest pain, SOB, palpitations, syncope or near syncope. No c/o LE swelling. He reports his primary land agent was Dr. Owens with [facility], but d/t him leaving he is now establishing care with Dr. Gibbons. He reports he was seen by a nurse practitioner at the [facility] in [place] recently. He has been compliant with his medications. Review of Systems-Cardiology Review of Systems Constitutional: No chills, No fever, No malaise Eyes: No vision change Ears/Nose/Throat: No epistaxis, No recent hearing loss Respiratory: As described under HPI Cardiovascular: As described under HPI Gastrointestinal: No constipation, No diarrhea, No nausea, No vomiting Genitourinary: No dysuria, No hematuria Musculoskeletal: other (left hip fracture) Skin: other (abrasions to his left elbow/arm); No rash on exposed areas, No ulcerations on exposed areas Psychiatric/Neurological: No anxiety, No depression, No seizure, No focal weakness, No syncope All Other Systems Reviewed Negative Unless Noted: Yes DMB-Oqxgga-Flvlis Hx Patient Social History Smoking Status: Former Smoker Alcohol Use?: No Pt feels they are or have been: No Immunizations Up To Date Date of Influenza Vaccine: Mar 19, 2023 Past Medical History PMH As described under Assessment. Family Medical History Family Medical History: No reported family h/o CAD Allergies and Home Medications Allergies Coded Allergies: acetaminophen (Unverified Allergy, Mild, 02/08/08) Patient Home Medication List Home Medication List Reviewed: Yes Aspirin (Aspirin) 81 Mg Tab.chew, 81 MG PO DAILY, (Reported) Entered as Reported by: ZEN CORDOVA on 05/20/231714 Last Action: Reviewed Dronedarone HCl (Multaq) 400 Mg Tablet, 400 MG PO BID, (Reported) Entered as Reported by: ZEN CORDOVA on 05/20/231714 Last Action: Reviewed Ramipril (Ramipril) 10 Mg Capsule, 10 MG PO 1600, (Reported) Entered as Reported by: ZEN CORDOVA on 05/20/231714 Last Action: Reviewed Simvastatin (Simvastatin) 40 Mg Tablet, 40 MG PO HS, (Reported) Entered as Reported by: ZEN CORDOVA on 05/20/231714 Last Action: Reviewed Sodium Chloride (Saline Nose [place]) 0.65 % [place], 1 SPRAY NS DAILY PRN for DRY NOSE, (Reported) Entered as Reported by: QI FLORES on 05/21/23917 Last Action: Reviewed Physical Exam-Cardiology Physical Exam Vital Signs/I&O 05/21/23 05/21/23 05/21/23 05/21/23 07:08 08:00 11:37 14:46 Temp 37.0 36.8 37.1 Pulse 60 60 Resp 18 18 16 B/P (MAP) 135/63 (87) 123/59 (80) 157/81 (106) Pulse Ox 90 92 98 O2 Delivery Room Air Room Air Room Air OxyMask O2 Flow Rate 4.00 05/21/23 05/21/23 05/21/23 05/21/23 14:46 14:50 15:00 15:00 Resp 17 18 B/P (MAP) 160/68 (98) 155/69 (97) Pulse Ox 98 98 O2 Delivery OxyMask OxyMask OxyMask OxyMask O2 Flow Rate 4.00 4.00 3.00 3.00 05/21/23 05/21/23 05/21/23 05/21/23 15:10 15:15 15:20 15:30 Resp 16 16 16 B/P (MAP) 154/62 (92) 155/67 (96) 143/61 (88) Pulse Ox 96 95 95 O2 Delivery OxyMask OxyMask Nasal Cannula Nasal Cannula O2 Flow Rate 2.00 2.00 2.00 2.00 05/21/23 05/21/23 05/21/23 05/21/23 15:30 15:40 15:45 16:04 Temp 36.8 36.2 Pulse 67 Resp 14 18 B/P (MAP) 153/71 (98) 165/71 (102) Pulse Ox 95 96 O2 Delivery Nasal Cannula Nasal Cannula Nasal Cannula Nasal Cannula O2 Flow Rate 2.00 2.00 2.00 2.00 05/20/23 23:59 Intake Total 400 ml Output Total 350 ml Balance 50 ml Capillary Refill : Less Than 3 Seconds Constitutional: AAO x 3, well-developed, well-nourished HEENT: PERRL, hearing is well preserved, oral hygience is good Neck: No carotid bruit; carotid pulses are 2 + bilaterally Respiratory: No accessory muscle use, No respiratory distress; chest expansion is symmetric, chest is bilaterally symmetric, lungs clear to auscultation Cardiovascular: irregularly irregular; No JVD; S1 and S2 Gastrointestinal: No tender; soft, round; No guarding; audible bowel sounds Extremities: no lower extremity edema bilateral Neurologic/Psychiatric: other (moves extremities, did not manipulate left leg d/t hip fracture, but able to move toes) Skin: No rash on exposed areas; other (multiple abrasions to left elbow/arm with dressing in place) Data Review Labs Laboratory Tests 05/21/23 05:39: White Blood Count 14.8H, Red Blood Count 4.06L, Hemoglobin 13.1L, Hematocrit 39L , Mean Corpuscular Volume 96, Mean Corpuscular Hemoglobin 32, Mean Corpuscular Hemoglobin Concent 34, Red Cell Distribution Width 13.0, Platelet Count 140, Mean Platelet Volume 9.8, Sodium Level 138, Potassium Level 4.2, Chloride Level 109H, Carbon Dioxide Level 22, Anion Gap 7, Blood Urea Nitrogen 14, Creatinine 1.24, Estimat Glomerular Filtration Rate 57, BUN/Creatinine Ratio 11, Glucose Level 123H, Calcium Level 8.8 A/P-Cardiology Assessment/Admission Diagnosis S/P left hip fracture d/t mechanical fall CAD - H/O 3 vessel CABG [place] [address] Cheney at [facility] in [place], [place] - was following with Dr. Owens, but d/t him moving he is establishing care with Dr. Gibbons (last seen a month ago) H/O abdominal aortic stent by Dr. Todd in 2007 - followed by [facility] CV services Chronic a-fib - rate controlled - on Multaq - not on OAC, which is an informed decision on the part of the patient HTN HLD - statin tx H/O left renal artery stent H/O renal calculi BPH - previously following with Dr. Valles Discussion and Recomendations S/P left hip fracture d/t mechanical fall requiring surgical intervention Based on his cardiac history as noted above we feel his risk for non-cardiac surgery is intermediate. We have discussed this with him and his spouse they verbalize understanding and with to proceed with surgery. We advise continuation of Multaq and ASA We have discussed rec for OAC d/t chronic a-fib for stroke prophylaxis; he verbalizes understanding of our rec but does not wish to do so Monitor lab closely. Advise Hgb be kept 9.0 or greater d/t cardiac issues as noted above We will request records from [facility] We would like to thank medical services for this consult Further recs will be based on his hospital course N.B.: Bety De La Torre APRN saw him at 1100; I saw him at 1650 VINNY ELLIOTT MD FACP FAC CCDS May 21, 2023 17:11
[2023-05-21] MEDS ORDERED: ARTIFICIAL TEARS Ophth solution 0.4 ML UNIT DOSE OD PRN (17:30)
[2023-05-22 04:26] VITALS: BP 114/61
[2023-05-22 06:37] LABS: EOSINOPHILS % (AUTO) 0 % (0-10); MEAN CORPUSCULAR VOLUME 96 fL (80-99)
[2023-05-22 06:39] LABS: WHITE BLOOD COUNT 18.8 10^3/uL (4.3-11.0)
[2023-05-22 06:40] LABS: BASOPHILS % (AUTO) 0 % (0-10); HEMATOCRIT 30 % (40-54); LYMPHOCYTES # (AUTO) 0.5 10^3/uL (1.0-4.0); LYMPHOCYTES % (AUTO) 2 % (12-44); MEAN CORPUSCULAR HEMOGLOBIN 32 pg (25-34); MEAN CORPUSCULAR HGB CONC 33 g/dL (32-36); MEAN PLATELET VOLUME 10.2 fL (9.0-12.2); MONOCYTES # (AUTO) 0.9 10^3/uL (0.0-1.0); MONOCYTES % (AUTO) 5 % (0-12); NEUTROPHILS # (AUTO) 17.3 10^3/uL (1.8-7.8); NEUTROPHILS % (AUTO) 92 % (42-75); PLATELET COUNT 138 10^3/uL (130-400)
[2023-05-22 06:57] LABS: LYMPHOCYTES % (MANUAL) 2 %; MONOCYTES % (MANUAL) 5 %; NEUTROPHILS % (MANUAL) 93 %; PLATELET ESTIMATE ADEQUATE; RBC MORPH NORMAL
[2023-05-22 06:58] LABS: CREATININE SERUM 1.35 MG/DL (0.60-1.30); HEMOGLOBIN 10.1 g/dL (13.3-17.7); POTASSIUM 4.4 MMOL/L (3.6-5.0)
--- NOTE | 2023-05-22 07:20 | Progress Note ---
Subjective Review of Systems General: Other Objective Exam Last Set of Vital Signs Vital Signs Date Time Temp Pulse Resp B/P (MAP) Pulse Ox O2 Delivery O2 Flow Rate FiO2 05/22/23 04:26 37.4 102 18 114/61 (78) 91 Room Air 05/21/23 16:04 2.00 Capillary Refill : Less Than 3 Seconds I&O Intake and Output 05/21/23 23:59 Intake Total 2225 ml Output Total 630 ml Balance 1595 ml Intake Oral 600 ml IV Total 1625 ml Output Urine Total 630 ml Results/Procedures Lab Laboratory Tests 05/22/23 05:30: White Blood Count 18.8H, Red Blood Count 3.15L, Hemoglobin 10.1#L, Hematocrit 30L, Mean Corpuscular Volume 96, Mean Corpuscular Hemoglobin 32, Mean Corpuscular Hemoglobin Concent 33, Red Cell Distribution Width 13.2, Platelet Count 138, Mean Platelet Volume 10.2, Immature Granulocyte % (Auto) 1, Neutrophils (%) (Auto) 92H, Lymphocytes (%) (Auto) 2L, Monocytes (%) (Auto) 5, Eosinophils (%) (Auto) 0, Basophils (%) (Auto) 0, Neutrophils # (Auto) 17.3H, Lymphocytes # (Auto) 0.5L, Monocytes # (Auto) 0.9, Eosinophils # (Auto) 0.0, Basophils # (Auto) 0.0, Immature Granulocyte # (Auto) 0.1, Neutrophils % (Manual) 93, Lymphocytes % (Manual) 2, Monocytes % (Manual) 5, Platelet Estimate ADEQUATE, Percent Immature Platelet Fraction 2.9, Blood Morphology Comment NORMAL, Sodium Level 137, Potassium Level 4.4, Chloride Level 108H, Carbon Dioxide Level 20L, Anion Gap 9, Blood Urea Nitrogen 23H, Creatinine 1.35H, Estimat Glomerular Filtration Rate 51, BUN/Creatinine Ratio 17, Glucose Level 136H, Calcium Level 8.0L Radiology NAME: [facility] REC#: [id number] PT STATUS: ADM Marita : 1935 PHYSICIAN: MARTIR BARRIOS ADMIT DATE: 05/20/23 Signed Date of Exam:05/20/23 CHEST 1 VIEW, AP/PA ONLY INDICATION: A fall with fracture. Preop evaluation. FINDINGS: The lungs are clear. Sternal wires midline. No acute abnormality. No failure pattern. IMPRESSION: Clear chest. Dictated by: Dictated on workstation # [id number] Dict: 05/20/23 1403 Trans: 05/20/231715 [facility] [id number] Interpreted by: MICH BARRERA Electronically signed by: MICH BARRERA 05/20/231715 NAME: [facility] REC#: [id number] PT STATUS: ADM Marita : 1935 PHYSICIAN: NARESH SANCHEZ MD ADMIT DATE: 05/20/23 Signed Date of Exam:05/20/23 CT PELVIS WO PROCEDURE: CT pelvis without contrast. TECHNIQUE: Multiple contiguous axial images were obtained through the pelvis without the use of intravenous contrast. Sagittal and coronal reformations were performed. Auto Exposure Controls were utilized during the CT exam to meet ALARA standards for radiation dose reduction. INDICATION: Left hip fracture. COMPARISON: 05/20/2023 radiographs. FINDINGS: Bone density appears low. There is an oblique fracture of the basicervical left femoral neck, with superior mild anterior displacement, impaction, and mild external rotation. The femoral heads are well seated in the acetabula bilaterally. There is mild degenerative change in the hip joints. There is a small left hip joint effusion. There is transitional anatomy at the lumbosacral junction. There are severe degenerative changes in the lower lumbar spine with L4 pars defects and grade 1 spondylolisthesis at L3-L4 and L4-L5. There is an aortobiiliac stent in an aortic aneurysm. Coils from prior abdominal hernia repair are noted in the right anterior abdomen. There is a fat-containing right inguinal hernia. A Whitlock catheter is in the bladder. No free fluid is seen in the pelvis. IMPRESSION: 1. Mildly displaced and impacted fracture of the left femoral neck. 2. Transitional anatomy at the lumbosacral junction with advanced degenerative change in the lower lumbar spine. Dictated by: Dictated on workstation # [id number] Dict: 05/20/23 1559 Trans: 05/20/231717 [id number] Interpreted by: CYNTHIA KEEN MD Electronically signed by: CYNTHIA KEEN MD 05/20/23 1718 Assessment/Plan Assessment/Plan (1) Hip fracture, left Status: Acute Assessment & Plan: Fentanyl prn pain. surgery planned for today around noon. Qualifiers: Qualified Codes: S72.002A - Fracture of unspecified part of neck of left femur, initial encounter for closed fracture (2) Coronary artery disease Status: Chronic Assessment & Plan: EKG with atrial fib (known) otherwise unremarkable. Asymptomatic and medically managed appropriately with no issues reported since bypass more than 10 years ago, follows with Cardiology regularly. Qualifiers: Qualified Codes: I25.810 - Atherosclerosis of coronary artery bypass graft(s) without angina pectoris (3) Bladder spasms Status: Resolved Assessment & Plan: Patient reported bladder spasms since placement of catheter. Start dicyclomine PRN (4) Aortic aneurysm Status: Chronic Assessment & Plan: History of stenting in past, reports yearly imaging shows stability/near resolution (5) Peripheral vascular disease Status: Chronic Assessment & Plan: Maintained on aspirin (6) Hypertension Status: Chronic Assessment & Plan: Maintained on ramipril (7) Hyperlipidemia Status: Chronic Assessment & Plan: Maintained on simvastatin (8) Atrial fibrillation Status: Chronic Assessment & Plan: Maintained on Multaq, states he was on coumadin years ago and has been off full anticoagulation for some time after joint decision making with his primary. VERNON MARRUFO May 22, 2023 07:20
[2023-05-22 08:02] VITALS: BP 108/64
--- NOTE | 2023-05-22 08:50 | Progress Note - Cardiology ---
Cardiology SOAP Progress Note Objective: I&O/Vital Signs Constitutional: AAO x 3, well-developed, well-nourished Respiratory: No accessory muscle use, No respiratory distress; chest expansion is symmetric, chest is bilaterally symmetric, lungs clear to auscultation Cardiovascular: irregularly irregular; No JVD; S1 and S2 Gastrointestional: No tender; soft, round; No guarding; audible bowel sounds Extremities: no lower extremity edema bilateral Neurologic/Psychiatric: other (moves extremities, did not manipulate left leg d/t hip fracture, but able to move toes) Skin: No rash on exposed areas; other (multiple abrasions to left elbow/arm with dressing in place) Results/Procedures: Labs Microbiology 05/21/23 MRSA Screen - Final, Complete A/P: Assessment: S/P left hip fracture d/t mechanical fall - S/P Prosthetic Replacement of Left Femoral Neck Fracture by Dr. Rodriguez CAD - H/O 3 vessel CABG in [address] Cheney at [facility] in [place], [place] - was following with Dr. Owens, but d/t him moving he is establishing care with Dr. Gibbons (last seen a month ago) H/O abdominal aortic stent by Dr. Todd in 2007 - followed by [facility] CV services Chronic a-fib - rate controlled - on Multaq - not on OAC, which is an informed decision on the part of the patient HTN HLD - statin tx H/O left renal artery stent H/O renal calculi BPH - previously following with Dr. Sanders Plan: S/P left hip fracture d/t mechanical fall requiring surgical intervention carried out by Dr. Rodriguez on 05-21-23 Continue ASA and Multaq We have discussed rec for OAC d/t chronic a-fib for stroke prophylaxis; he verbalizes understanding of our rec but does not wish to do so Monitor lab closely. Advise Hgb be kept 9.0 or greater d/t cardiac issues as n oted above We will request records from [facility] Monitor lab JOHANNE MARQUEZ May 22, 2023 08:50
--- NOTE | 2023-05-22 08:59 | Progress Note - Ortho ---
Progress Note Subjective Date of Exam 05/22/23 Chief Complaint POD #1 Prosthetic Replacement of Left FN Fx HPI/Events since last exam doing well, getting ready for therapy Review of Systems - Allergies: Coded Allergies: acetaminophen (Unverified Allergy, Mild, 02/08/08) Home Meds Reported Medications Sodium Chloride (Saline Nose [place]) 0.65 % Hansen, 1 SPRAY NS DAILY PRN for DRY NOSE, EA 05/21/23 Aspirin (Aspirin) 81 Mg Tab.chew, 81 MG PO DAILY, TAB 05/20/23 Ramipril (Ramipril) 10 Mg Capsule, 10 MG PO 1600 05/20/23 Dronedarone HCl (Multaq) 400 Mg Tablet, 400 MG PO BID 05/20/23 Simvastatin (Simvastatin) 40 Mg Tablet, 40 MG PO HS 05/20/23 Objective Exam L Hip: Dressing with mild drainage showing, +DF of ankle, no s/s of DVT Vital Signs Vital Signs Date Time Temp Pulse Resp B/P (MAP) Pulse Ox O2 Delivery O2 Flow Rate FiO2 05/22/23 08:02 37.4 71 17 108/64 (79) 98 Room Air 05/22/23 04:26 37.4 102 18 114/61 (78) 91 Room Air 05/21/23 23:30 37.3 72 18 105/61 (76) 95 Room Air 05/21/23 20:00 Room Air 05/21/23 19:31 36.8 84 20 116/55 (75) 94 Room Air 05/21/23 16:04 36.2 67 18 165/71 (102) 96 Nasal Cannula 2.00 05/21/23 15:45 Nasal Cannula 2.00 05/21/23 15:40 36.8 14 153/71 (98) 95 Nasal Cannula 2.00 05/21/23 15:30 Nasal Cannula 2.00 05/21/23 15:30 16 143/61 (88) 95 Nasal Cannula 2.00 05/21/23 15:20 16 155/67 (96) 95 Nasal Cannula 2.00 05/21/23 15:15 OxyMask 2.00 05/21/23 15:10 16 154/62 (92) 96 OxyMask 2.00 05/21/23 15:00 18 155/69 (97) 98 OxyMask 3.00 05/21/23 15:00 OxyMask 3.00 05/21/23 14:50 17 160/68 (98) 98 OxyMask 4.00 05/21/23 14:46 OxyMask 4.00 05/21/23 14:46 37.1 16 157/81 (106) 98 OxyMask 4.00 05/21/23 11:37 36.8 60 18 123/59 (80) 92 Room Air I & O 05/22/23 06:59 Intake Total 3825 ml Output Total 1180 ml Balance 2645 ml Lab Results Laboratory Tests 05/22/23 05:30: White Blood Count 18.8H, Red Blood Count 3.15L, Hemoglobin 10.1#L, Hematocrit 30L, Mean Corpuscular Volume 96, Mean Corpuscular Hemoglobin 32, Mean Corpuscular Hemoglobin Concent 33, Red Cell Distribution Width 13.2, Platelet Count 138, Mean Platelet Volume 10.2, Immature Granulocyte % (Auto) 1, Neutrophils (%) (Auto) 92H, Lymphocytes (%) (Auto) 2L, Monocytes (%) (Auto) 5, Eosinophils (%) (Auto) 0, Basophils (%) (Auto) 0, Neutrophils # (Auto) 17.3H, Lymphocytes # (Auto) 0.5L, Monocytes # (Auto) 0.9, Eosinophils # (Auto) 0.0, Basophils # (Auto) 0.0, Immature Granulocyte # (Auto) 0.1, Neutrophils % (Manual) 93, Lymphocytes % (Manual) 2, Monocytes % (Manual) 5, Platelet Estimate ADEQUATE, Percent Immature Platelet Fraction 2.9, Blood Morphology Comment NORMAL, Sodium Level 137, Potassium Level 4.4, Chloride Level 108H, Carbon Dioxide Level 20L, Anion Gap 9, Blood Urea Nitrogen 23H, Creatinine 1.35H, Estimat Glomerular Filtration Rate 51, BUN/Creatinine Ratio 17, Glucose Level 136H, Calcium Level 8.0L Imaging Postop AP pelvis demonstrated cemented bipolar of the left hip in good position without complication Assessment and Plan Assessment L FN Fx s/p Prosthetic Replacement Problem List L FN Fx s/p Prosthetic Replacement Plan PT/OT--inpatient rehab eval DVT prophylaxis--start apixaban tonight and will be on for 5 weeks from orthopedic standpoint Final Diagonsis L FN Fx s/p Prosthetic Replacement Level of the visit: Level 3 (global) NARESH SANCHEZ MD May 22, 2023 08:59
--- NOTE | 2023-05-22 09:39 | Physical Therapy Evaluation ---
PT Evaluation-General Medical Diagnosis Admission Date May 20, 2023 at 15:39 Medical Diagnosis: left hip fracture Onset Date: May 20, 2023 Therapy Diagnosis Therapy Diagnosis: generalized weakness/impaired mobility Precautions Precautions/Isolations: Fall Prevention, Standard Precautions Weight Bear Status Right Lower Extremity: Right Full Weight Bearing Left Lower Extremity: Left Weight Bearing/Tolerated Posterior Dislocation Precautions Referral Physician: Michael Reason for Referral: Evaluation/Treatment Medical History Pertinent Medical History: Atrial Fib, CAD, HTN, PVD Current History EMS secondary to LOB 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 0-Mhvcbvphbc-oqtufzo completes the activity by him/herself with no assistance from a helper. 5-Set-up or Clean-up Assistance-helper sets up or cleans up; patient completes activity. [place] assists only prior to or following the activity. 4-Supervision or Touching Assistance-helper provides verbal cues and/or to uching/steadying and/or contact guard assistance as patient completes activity. Assistance may be provided throughout the activity or intermittently. 3-Partial/Moderate Assistance-helper does LESS THAN HALF the effort. [place] lifts, holds or supports trunk or limbs, but provides less than half the effort. 2-Substantial/Maximal Assistance-helper does MORE THAN HALF the effort. [place] lifts or holds trunk or limbs and provides more than half the effort. 9-Vfjzkbmrx-itpegh does ALL the effort. Patient does none of the effort to complete the activity. Or, the assistance of 2 or more helpers is required for the patient to complete the activity. If activity was not attempted, code reason: 7-Patient Refused. 9-Not Applicable-not attempted and the patient did not perform the activity before the current illness, exacerbation or injury. 10-Not Attempted due to Environmental Limitations-(lack of equipment, weather restraints, etc.). 88-Not Attempted due to Medical Conditions or Safety Concerns. Bed Mobility: 6 Transfers (B,C,W/C): 6 Gait: 6 Stairs: 6 Indoor Mobility (Ambulation): Independent Stairs: Independent Prior Devices Use: None PT Evaluation-Current Subjective Patient agrees to therapy. Spouse present Pain Numeric Pain Scale: 5-Moderate Pain Location: Left Location Body Site: Hip Pain Description: Acute Comment: meds issued Objective Patient Orientation: Normal For Age ROM/Strength ROM Lower Extremities left hip posterior precautions/right LE WFL Strength Lower Extremities left LE 3-/5 grossly/right LE 3+/5 grossly Integumentary/Posture Bowel Incontinence: No Bladder Incontinence: No Posture kyphotic Neuromuscular (Tone, Coordination, Reflexes) grossly intact Sensory Vision: Wears Glasses Hearing: Functional Transfers Lying to Sitting/Side of Bed(Q: 3 Sit to Stand (QC): 3 Chair/Nhd-zz-Ntqus Xfer(QC): 3 Gait Mode of Locomotion: Walk Anticipated Mode of Locomotion: Walk Walk 10 feet (QC): 3 Walk 50 ft with 2 Turns(QC): 88 Walk 150 ft (QC): 88 Walking 10ft/uneven surface-QC: 88 Distance: 25' Gait Assistive Device: FWW Comments/Gait Description slow, step to, antalgic Stairs 1 Step (curb) (QC): 88 4 Steps (QC): 88 12 Steps (QC): 9 Balance Sitting Static: Normal Sitting Dynamic: Normal Standing Static: Fair Standing Dynamic: Fair Assessment/Needs Patient will benefit from skilled PT to address functional strength and mobility to improve current LOF. Patient would benefit from ARU due to independent PLOF and highly active and motivated individual. Rehab Potential: Fair PT Detention Goals [place] [employer] Attendant Goals PT Detention Goals Time Frame: Jun 13, 2023 Roll Left & Right (QC): 6 Sit to Lying (QC): 6 Lying-Sitting on Side/Bed(QC): 6 Sit to Stand (QC): 6 Chair/Glq-hw-Yknfd Xfer(QC): 6 Toilet Transfer (QC): 6 Walk 10 feet (QC): 4 Walk 50ft with 2 Turns (QC): 4 Walk 150 ft (QC): 4 PT Plan Problem List Problem List: Activity Tolerance, Functional Strength, Balance, Gait, Transfer, Bed Mobility Treatment/Plan Treatment Plan: Continue Plan of Care Treatment Plan: Bed Mobility, Education, Functional Activity Isaac, Functional Strength, Gait, Safety, Therapeutic Exercise, Transfers Treatment Duration: Jun 13, 2023 Frequency: 11 times per week Estimated Hrs Per Day: .5 hour per day Patient and/or Family Agrees t: Yes Safety Risks/Education Patient Education: Gait Training, Reviewed Precautions Teaching Recipient: Patient, Significant Other Teaching Methods: Demonstration, Discussion Response to Teaching: Verbalize Understanding, Return Demonstration Discharge Recommendations Therapy Discharge Recommendati: Post Acute PT Time Time In: 857 Time Out: 910 DATE: May 22, 2023 Total Billed Treatment Time: 13 Total Billed Treatment 1 visit [facility] 13 min AYLA CASON PT May 22, 2023 09:39
[2023-05-22] MEDS: DRONEDARONE 400 MG TABLET PO SCH (09:40)
[2023-05-22] MEDS: ASPIRIN 81 MG CHEWABLE TABLET PO SCH (09:40)
--- NOTE | 2023-05-22 09:43 | Occupational Therapy Eval ---
OT Evaluation-General/PLF Medical Diagnosis Admission Date May 20, 2023 at 15:39 Medical Diagnosis: fall, left hip fx Onset Date: May 20, 2023 Therapy Diagnosis Therapy Diagnosis: weakness s/p LTHA Precautions Precautions/Isolations: Fall Prevention, Standard Precautions Comments L MARTIN precautions, wedge Weight Bear Status Weight Bearing Restriction: Weight Bearing/Tolerated Location Restriction: L LE Referral Referral Reason: Self Care, Evaluation/Treatment Medical History Additional Medical History fell in driveway Reviewed History: Yes Social History Home: Multilevel (upstairs, does not use) Current Living Status: Spouse Entry Into Home: Stairs With Railing Steps Into Home: 1 Steps Inside Home: 13 ADL-Prior Level of Function SCALE: Activities may be completed with or without assistive devices. 8-Iycgzundyc-tslbfsz completes the activity by him/herself with no assistance from a helper. 5-Set-up or Clean-up Assistance-helper sets up or cleans up; patient completes activity. [place] assists only prior to or following the activity. 4-Supervision or Touching Assistance-helper provides verbal cues and/or touching/steadying and/or contact guard assistance as patient completes activity. Assistance may be provided throughout the activity or intermittently. 3-Partial/Moderate Assistance-helper does LESS THAN HALF the effort. [place] lifts, holds or supports trunk or limbs, but provides less than half the effort. 2-Substantial/Maximal Assistance-helper does MORE THAN HALF the effort. [place] lifts or holds trunk or limbs and provides more than half the effort. 4-Lmprrwhig-zijesr does ALL the effort. Patient does none of the effort to complete the activity. Or, the assistance of 2 or more helpers is required for the patient to complete the activity. If activity was not attempted, code reason: 7-Patient Refused. 9-Not Applicable-not attempted and the patient did not perform the activity before the current illness, exacerbation or injury. 10-Not Attempted due to Environmental Limitations-(lack of equipment, weather restraints, etc.). 88-Not Attempted due to Medical Conditions or Safety Concerns. Self Care: Independent Functional Cognition: Independent Drive Self: Yes OT Current Status Subjective Agreeable to OT Pain Numeric Pain Scale: 4 Location: Left Location Body Site: Hip Mental Status/Objective Patient Orientation: Person, Place, Time, Situation Attachments: SCD's Current Glasses/Contacts: Yes Upper Extremity ROM BUE ROM WFLS Upper Extremity Coordination BUE WFLS Upper Extremity Sensation BUE WFLS/ INTACT Upper Extremity Strength 4/5 grossly ADL-Treatment ADL-Current MARTIN precautions indicated for ADLS Eating (QC): 6 Oral Hygiene (QC): 5 Shower/Bathe Self (QC): 7 Upper Body Dressing (QC): 4 Lower Body Dressing (QC): 3 On/Off Footwear (QC): 3 Toileting Hygiene (QC): 3 Education OT Patient Education: Correct positioning, Modified ADL techniques, Progress toward Goal/Update tx plan, Purpose of tx/functional activities, Reviewed precautions, Rehab process, Safety issues, Transfer techniques, Use of adapted equipment Teaching Recipient: Patient, Family Teaching Methods: Demonstration, Discussion Response to Teaching: Return Demonstration, Reinforcement Needed OT Guide Escort Goals Guide Escort Goals Eating (QC): 6 Oral Hygiene (QC): 6 Toileting Hygiene (QC): 6 Shower/Bathe Self (QC): 6 Upper Body Dressing (QC): 6 Lower Body Dressing (QC): 6 On/Off Footwear (QC): 6 1=Demonstrate adherence to instructed precautions during ADL tasks. 2=Patient will verbalize/demonstrate understanding of assistive devices/modifications for ADL. 3=Patient will improve strength/tolerance for activity to enable patient to perform ADL's. OT Education/Plan Problem List/Assessment Assessment: Decreased Activ Tolerance, Impaired Bed Mobility, Impaired Self- Care Skills Discharge Recommendations Plan/Recommendations: Continue POC Therapy Discharge Recommendati: Post Acute OT Equpiment Recommendations-D/C: Hip Kit Treatment Plan/Plan of Care Treatment,Training & Education: Yes Patient would benefit from OT for education, treatment and training to promote independence in ADL's, mobility, safety and/or upper extremity function for ADL's. Plan of Care: ADL Retraining, Functional Mobility, Group Exercise/Act as Ind, UE Funct Exercise/Act Treatment Duration: May 29, 2023 Frequency: 3 times per week Estimated Hrs Per Day: .25 hour per day Rehab Potential: Good Time Start Time: 08:50 Stop Time: 09:11 DATE: May 22, 2023 Total Time Billed (hr/min): 21 Billed Treatment Time EVM 21 min SILVA CALLOWAY OT May 22, 2023 09:43
[2023-05-22 11:54] VITALS: BP 108/64
--- NOTE | 2023-05-22 13:38 | Anesthesia-General Post-Op ---
General Patient Condition Mental Status/LOC: Same as Preop Cardiovascular: Satisfactory Nausea/Vomiting: Absent Respiratory: Satisfactory Pain: Controlled Complications: Absent Post Op Complications Complications None Follow Up Care/Instructions Patient Instructions None needed. Anesthesia/Patient Condition Patient Condition Patient is doing well. He was seen on the inpatient rehab floor, sitting up in the chair and doing well. He has no complaints when sitting, but he does have some Lt hip discomfort when getting up with assistance, which is to be expected. He has stable vital signs, no apparent adverse anesthesia problems. No complications reported per nursing. HORACIO PARK DO May 22, 2023 13:38
--- NOTE | 2023-05-22 14:36 | Discharge Summary ---
VERNON MARRUFO 05/22/23 1413: Discharge Summary Hospital Course Problems/Diagnosis: (1) Hip fracture, left Status: Acute Assessment & Plan: s/p prosthetic replacement of the femoral neck Qualifiers: Qualified Codes: S72.002A - Fracture of unspecified part of neck of left femur, initial encounter for closed fracture (2) Coronary artery disease Status: Chronic Assessment & Plan: EKG with atrial fib (known) otherwise unremarkable. Asymptomatic and medically managed appropriately with no issues reported since bypass more than 10 years ago, follows with Cardiology regularly. Qualifiers: Qualified Codes: I25.810 - Atherosclerosis of coronary artery bypass graft(s) without angina pectoris (3) Bladder spasms Status: Resolved Assessment & Plan: Patient reported bladder spasms since placement of catheter. dicyclomine PRN (4) Aortic aneurysm Status: Chronic Assessment & Plan: History of stenting in past, reports yearly imaging shows stability/near resolution (5) Peripheral vascular disease Status: Chronic Assessment & Plan: Maintained on aspirin (6) Hypertension Status: Chronic Assessment & Plan: Maintained on ramipril (7) Hyperlipidemia Status: Chronic Assessment & Plan: Maintained on simvastatin (8) Atrial fibrillation Status: Chronic Assessment & Plan: Maintained on Multaq, states he was on coumadin years ago a nd has been off full anticoagulation for some time after joint decision making with his primary. Hospital Course Date of Admission: May 20, 2023 at 15:39 Admission Diagnosis : Family Physician/Provider: Merissa Henao Physician Date of Discharge: 05/22/23 Discharge Diagnosis: Fracture of the left femoral neck Hospital Course: Patient was admitted due to fall and fracture of his hip. Pelvis XR and CT pelvis showed evidence of a left femoral neck fracture. Patient was given IV Fentanyl PRN for pain. A catheter was placed on admission which caused patient to have bladder spasms which were treated with dicyclomine as needed. Orthopedics was consulted and performed a prosthetic replacement of the femoral neck. Patient had no complications during surgery and reported minimal pain post-op. Patient was discharged to rehab on 05/22. Labs and Pending Lab Test: Laboratory Tests 05/22/23 05:30: White Blood Count 18.8H, Red Blood Count 3.15L, Hemoglobin 10.1#L, Hematocrit 30L, Mean Corpuscular Volume 96, Mean Corpuscular Hemoglobin 32, Mean Corpuscular Hemoglobin Concent 33, Red Cell Distribution Width 13.2, Platelet Count 138, Mean Platelet Volume 10.2, Immature Granulocyte % (Auto) 1, [place] trophils (%) (Auto) 92H, Lymphocytes (%) (Auto) 2L, Monocytes (%) (Auto) 5, Eosinophils (%) (Auto) 0, Basophils (%) (Auto) 0, Neutrophils # (Auto) 17.3H, Lymphocytes # (Auto) 0.5L, Monocytes # (Auto) 0.9, Eosinophils # (Auto) 0.0, Basophils # (Auto) 0.0, Immature Granulocyte # (Auto) 0.1, Neutrophils % (Manual ) 93, Lymphocytes % (Manual) 2, Monocytes % (Manual) 5, Platelet Estimate ADEQUATE, Percent Immature Platelet Fraction 2.9, Blood Morphology Comment NORMAL, Sodium Level 137, Potassium Level 4.4, Chloride Level 108H, Carbon Dioxide Level 20L, Anion Gap 9, Blood Urea Nitrogen 23H, Creatinine 1.35H, E stimat Glomerular Filtration Rate 51, BUN/Creatinine Ratio 17, Glucose Level 136H, Calcium Level 8.0L Home Meds Active Reported Saline Nose [place] (Sodium Chloride) 0.65 % [place] 1 [place] NS DAILY PRN Aspirin 81 Mg Tab.chew 81 Mg PO DAILY Ramipril 10 Mg Capsule 10 Mg PO 1600 Multaq (Dronedarone HCl) 400 Mg Tablet 400 Mg PO BID Simvastatin 40 Mg Tablet 40 Mg PO HS Discharge Diet: No Restrictions Consulations Consultations Cardiology Orthopedic surgery Discharge Physical Examination Allergies: Coded Allergies: acetaminophen (Unverified Allergy, Mild, 02/08/08) General Appearance: No Apparent Distress, WD/WN HEENT: PERRL/EOMI Respiratory: Lungs Clear, Normal Breath Sounds, No Accessory Muscle Use Cardiovascular: No Edema, Normal Peripheral Pulses, Irregularly Irregular Gastrointestinal: Normal Bowel Sounds, No Organomegaly, Non Tender, Soft Extremity: No Pedal Edema Skin: Normal Color, Warm/Dry Neurologic/Psychiatric: Alert, Oriented x3 Discharge Summary Date of Admission May 20, 2023 at 15:39 Date of Discharge May 22, 2023 at 11:56 Admission Diagnosis Fracture of the left femoral neck Consults/Procedures Consulations Cardiology Orthopedic surgery Procedures prosthetic replacement of the femoral neck Discharge Diagnosis Fracture of the left femoral neck s/p prosthetic replacement of the femoral neck ZEN CORDOVA MD 05/22/23 [id number]: Discharge Summary Hospital Course Assessment/Pt DC Instructions Follow up after IRF Discharge Physical Examination Allergies: Coded Allergies: acetaminophen (Unverified Allergy, Mild, 02/08/08) Supervisory-Addendum Brief Verification & Attestation Participated in pt care: history, MDM, physical Personally performed: exam, history, MDM, supervision of care Care discussed with: Medical Student Procedures: n/a I personally performed or re-performed the history, physical exam and treatment for the E/M. I discussed the case with the Medical Student, and concur with the Medical Student documentation of history, physical exam and treatment plan unless otherwise noted. VERNON MARRUFO May 22, 2023 14:13 ZEN CORDOVA MD May 22, 2023 17:09
[2023-05-22] MEDS ORDERED: APIXABAN 2.5 MG TABLET PO SCH (21:00)
== END 2023-05-22 11:56 | DRG 536 ==
LOC: EDUNIT# 13:12 → ER 13:13 → UNDOADMOB 15:39 → 4TH 15:39 → UNDODISOB 05-22 11:56
PROVIDERS: ADMIT Family Medicine; ATTEND Student in an Organized Health Care Education/Training Program
DX: S72.042A Displaced fracture of base of neck of left femur, initial encounter for closed fracture (principal); I48.20 Chronic atrial fibrillation, unspecified; S50.312A Abrasion of left elbow, initial encounter; I25.10 Atherosclerotic heart disease of native coronary artery without angina pectoris; E78.5 Hyperlipidemia, unspecified; I10 Essential (primary) hypertension; I73.9 Peripheral vascular disease, unspecified; I71.9 Aortic aneurysm of unspecified site, without rupture; Z87.891 Personal history of nicotine dependence; Z95.1 Presence of aortocoronary bypass graft; Z88.6 Allergy status to analgesic agent; W19.XXXA Unspecified fall, initial encounter; Y92.008 Other place in unspecified non-institutional (private) residence as the place of occurrence of the external cause
CPT/HCPCS: 36415; 51702; 71045; 72170; 72192; 73080; 80048; 80053; 85007; 85025; 85027; 85610; 85730; 87081; 93005; 96374